=== PATIENT | female | born 1950 | race Caucasian/White ===

== ENCOUNTER → 2019-04-25 | Outpatient (CLI) | payer MEDICARE, OTHER ==
[~2019-04-25] MED LIST: ESTRADIOL1 MG PO; SERTRALINE HCL50 MG PO; SYNTHROID125 MCG PO
== END ==
LOC: RAD 12:57
PROVIDERS: ATTEND Internal Medicine
DX: I10 Essential (primary) hypertension (principal)
CPT/HCPCS: 93306

== ENCOUNTER → 2019-05-26 | Outpatient (CLI) | payer MEDICARE, OTHER ==
[~2019-05-26] MED LIST changes: +IOPAMIDOL 370 MG/ML 200 ML INFUS..BTL INJ ONE; +SODIUM CHLORIDE 0.9% 100 ML ONE
[2019-05-26 14:40] LABS: BLOOD UREA NITROGEN 9 mg/dL (7-26); BUN/CREATININE RATIO 12 (6-25); CREATININE, SERUM 0.77 mg/dL (0.57-1.11); EST GLOMERULAR FILTRATION RATE > 60 ML/MIN (60-)
--- NOTE | 2019-06-02 09:46 | Diagnostic Imaging Report ---
CTA NECK HISTORY: Symptomatic carotid stenosis COMPARISON: None. TECHNIQUE: CTA of the neck was performed with intravenous iodine based contrast. Coronal, sagittal, and oblique maximum intensity projection reformations were created. One or more of the following dose reduction techniques were used: Automated exposure control, adjustment of the mA and/or kV according to patient size, and/or utilization of iterative reconstruction technique. DISCUSSION: If present, any cervical carotid stenosis will be measured as a percentage relative to the qu[place]ult artery distal to the stenosis (NASCET). Right Carotid: Mild calcified plaque at the right carotid bulb causes less than 50% focal stenosis in the proximal right internal carotid artery. Left Carotid: Severe calcified plaque at the left carotid bulb causes up to 90% focal stenosis in the proximal left internal carotid artery. The remainder of the cervical left internal carotid artery is small. Right vertebral artery: Patent, no abnormalities. Left vertebral artery: Mild noncalcified plaque at the left vertebral artery ostium causes mild focal stenosis. Otherwise, patent and without abnormality. The intracranial arterial vasculature is partially imaged. Minimal right carotid siphon calcified plaque does not cause significant stenosis. The intracranial left internal carotid artery is also small. 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 There is mild scarring in the lung apices. The thyroid gland is either absent or atrophic; a small coarse calcification is seen in the expected area of the right thyroid lobe. There are mild to moderate degenerative changes throughout the spine. IMPRESSION: 1. Up to 90% focal stenosis in the proximal left internal carotid artery due to severe calcified plaque. 2. Mild right carotid bulb calcified plaque without significant stenosis. 3. Mild focal stenosis at the left vertebral artery ostium due to noncalcified plaque. Signed by: Dr. Payam Mckay M.D. on 06/02/2019 9:42 AM
== END ==
LOC: CT 14:02
PROVIDERS: ATTEND Internal Medicine Cardiovascular Disease
DX: I65.29 Occlusion and stenosis of unspecified carotid artery (principal)
CPT/HCPCS: 36415; 70498; 82565; 84520; J7050; Q9967